=== PATIENT | male | born 1965 | race African-American/Black ===

== ENCOUNTER 2019-05-23 00:03 | Emergency (ER) | payer OTHER ==
[~2019-05-23] VITALS: Ht 180.3 cm; Wt 91.6 kg
[2019-05-23 00:21] VITALS: BP 127/85
[2019-05-23] MEDS ORDERED: CIPROFLOXACIN HCL 500 MG TABLET ONE (00:37)
[2019-05-23] MEDS: CIPROFLOXACIN HCL 250 MG TABLET PO ONE (00:44)
== END 2019-05-23 01:00 | disposition home or self-care (01) ==
LOC: ER 00:05
DX: G03.9 Meningitis, unspecified (principal)
CPT/HCPCS: J7030